=== PATIENT | male | born 1980 | race Caucasian/White ===

== ENCOUNTER → 2017-06-19 | Outpatient (CLI) | payer OTHER ==
[~2017-06-19] MED LIST: OMNIPAQUE 350 MG/ML, 100ML BOTTLE ONE
== END | disposition home or self-care (01) ==
LOC: CFH 12:45
PROVIDERS: ATTEND Nurse Practitioner Family
DX: M48.56XA Collapsed vertebra, not elsewhere classified, lumbar region, initial encounter for fracture (principal); R10.84 Generalized abdominal pain; R14.0 Abdominal distension (gaseous); Z98.890 Other specified postprocedural states
CPT/HCPCS: 74177; Q9967

== ENCOUNTER 2019-04-26 11:18 | Emergency (ER) | payer OTHER ==
[~2019-04-26] VITALS: Ht 182.9 cm; Wt 87.7 kg
[2019-04-26] MEDS ORDERED: GLUCAGON 1 MG ONE (11:58)
[2019-04-26] MEDS ORDERED: GLUCAGON 1 MG IVPush ONE (12:00)
[2019-04-26] MEDS ORDERED: SODIUM CHLORIDE FLUSH 10ML SYR IVF ONE (12:00)
[2019-04-26 12:01] LABS: BASOPHILS # (AUTO) 0.03 x10^3/uL (0-0.1); BASOPHILS % (AUTO) 0 % (0-1); EOSINOPHILS # (AUTO) 0.09 x10^3/uL (0-0.4); EOSINOPHILS % (AUTO) 1 % (1-7); LYMPHOCYTES # (AUTO) 1.52 x10^3/uL (1-3.4); LYMPHOCYTES % (AUTO) 22 % (22-44); MD NO; MEAN CORPUSCULAR HEMOGLOBIN 31.7 pg (27.5-34.5); MEAN CORPUSCULAR HGB CONC 33.3 g/dL (33.2-36.2); MEAN CORPUSCULAR VOLUME 95.3 fL (81-97); MONOCYTES # (AUTO) 0.41 x10^3/uL (0.2-0.8); MONOCYTES % (AUTO) 6 % (2-9); NEUTROPHILS # (AUTO) 4.98 x10^3/uL (1.8-6.8); NEUTROPHILS % (AUTO) 71 % (42-75); PLATELET COUNT 323 x10^3/uL (130-400); RED BLOOD COUNT 5.12 x10^6/uL (4.38-5.82)
--- NOTE | 2019-04-26 12:03 | NUR ---
pt medicated per order. suction and emisis bag at pt side. iv access obtained. pt to x ray now
[2019-04-26 12:45] LABS: ALBUMIN 5.3 g/dL (3.4-5.0); ANION GAP 7 mmol/L (5-15); CALCIUM 9.7 mg/dL (8.5-10.1); CHLORIDE 110 mmol/L (98-107); CREATININE 1.07 mg/dL (0.7-1.3)
--- NOTE | 2019-04-26 12:50 | NUR ---
call out to gi and endo team. sedation and consent paperwork at bedside. pt placed on cardiac, o2 and nibp monitoring
[2019-04-26] MEDS ORDERED: FENTANYL PF 100 MCG/2ML ONE (13:15)
[2019-04-26] MEDS ORDERED: MIDAZOLAM 1 MG/ML, 5ML ONE (13:16)
[2019-04-26] MEDS ORDERED: PROPOFOL 10 MG/ML, 20ML ONE (13:26)
--- NOTE | 2019-04-26 13:26 | NUR ---
PT MOVED TO T2 FOR PROCEDURE.
[2019-04-26] MEDS ORDERED: AAA-ALL IV'S IN NORMAL SALINE IV PRN (13:30)
[2019-04-26] MEDS ORDERED: PROPOFOL 10 MG/ML, 20ML IVPush ONE (13:30)
--- NOTE | 2019-04-26 13:53 | NUR ---
LUNCH RN: PROCEDURE COMPLETE. SPECIALIST CURRENTLY UPDATING ON POC. AWAITING PT RECOVERY FOR DISCHARGE AT THIS TIME
--- NOTE | 2019-04-26 14:17 | NUR ---
LUNCH RN: REPORT RECEIVED FROM YADIRA ROB, PROCEDURAL SEDATION COMPLETE. PT AWAKE AND TALKING AT THIS TIME WITH VSS. AWAITING DC PAPERS
[2019-04-26 14:18] VITALS: BP 127/85
== END 2019-04-26 14:49 | disposition home or self-care (01) ==
LOC: ED 14:43
DX: T18.128A Food in esophagus causing other injury, initial encounter (principal); K21.9 Gastro-esophageal reflux disease without esophagitis; D72.1 Eosinophilia; I10 Essential (primary) hypertension; X58.XXXA Exposure to other specified factors, initial encounter; Y93.89 Activity, other specified; Y92.89 Other specified places as the place of occurrence of the external cause; Y99.8 Other external cause status
CPT/HCPCS: 36415; 43247; 70360; 80048; 82040; 85025; 88305; 93005; 96374; 99152; 99285; J1610; J2250; J3010